=== PATIENT | female | born 2000 ===

== ENCOUNTER 2023-04-25 21:12 | Inpatient (IN) | payer OTHER ==
[~2023-04-25] VITALS: Ht 167.6 cm; Wt 96.2 kg
[2023-04-25 21:17] VITALS: BP_SYST 121
[2023-04-25 21:20] VITALS: BP 110/68; PULSE 76; TEMP 98.4
[2023-04-25] MEDS ORDERED: QUALITY CHOICE1 TA7 PO (21:44)
--- NOTE | 2023-04-25 22:00 | NUR ---
Received report from [facility] nurse Krishna at 2030. Pt arrived on the unit at 2116. Pt is alert and oriented and able to move around independently. Pt has on bracelets, earrings, anklet, and rings on. Pt also has a belt bag, apple watch, and phone in the room. Pt also arrived with clothes and shoes.
[2023-04-25] MEDS ORDERED: LR 1,000 ML IV SCH (22:15)
[2023-04-25] MEDS ORDERED: Morphine 4 MG/ML VIAL IV PRN (22:15)
[2023-04-26] VITALS (17 sets, daily range): BP systolic 101–128; BP diastolic 59–75; PULSE 72–91; TEMP 97.8–98.3
--- NOTE | 2023-04-26 06:21 | NUR ---
Pt had an uneventful night. Pt had no complaints of pain throughout the night. Pt can move independently in the room. Pt's is currently alert and resting in bed with call light within reach. Pt has fluids and ABX running through the IV at this time.
[2023-04-26 06:48] LABS: BASO # 0.1 K/mm3 (0.0-0.2); BASO % 0.6 % (0.0-2.0); EOS # 0.2 K/mm3 (0.0-0.7); EOS % 2.2 % (0.0-4.0); GRAN # 6.7 K/mm3 (1.4-6.5); GRAN % 67.5 % (42.2-75.2); HEMATOCRIT 39.4 % (37.0-47.0); HEMOGLOBIN 12.5 g/dl (12.5-16.0); LYMPH # 2.2 K/mm3 (1.2-3.4); LYMPH % 21.8 % (20.0-51.0); MEAN CELL VOLUME 85 fl (80.0-100.0); MEAN CORPUSCULAR HEMOGLOBIN 27 pg (27-31); MEAN CORPUSCULAR HGB CONC 32 g/dl (33.0-37.0); MEAN PLATELET VOLUME 11.6 fl (7.4-10.4); MONO # 0.8 K/mm3 (0.1-0.6); MONO % 7.5 % (1.7-9.3); PLATELET COUNT 232 K/mm3 (130-400); RED BLOOD COUNT 4.65 M/mm3 (4.10-5.30); REDCELL DISTRIBUTION WIDTH-CV 15.4 % (11.5-14.5)
[2023-04-26 07:05] LABS: ALBUMIN 3.2 gm/dL (3.5-5.0); BILIRUBIN,TOTAL 0.8 mg/dL (0.2-1.2); CALCIUM 8.8 mg/dL (8.4-10.2); CREATININE, serum 0.67 mg/dL (0.57-1.11); POTASSIUM 3.8 mmol/L (3.5-4.5); TOTAL PROTEIN 6.6 gm/dL (6.2-8.1)
[2023-04-26] MEDS ORDERED: Influenza Virus Vaccine, Quad '23-24 (6 MOS+) 0.5 ML SYRINGE IM SCH (09:00)
--- NOTE | 2023-04-26 10:05 | NUR ---
PATIENT ALERT AND ORIENTED X4. VSS. PATIENT HERE FOR GALLSTONES, PANCREATITIS. PATIENT DENIES ANY PAIN THIS MORNING. IV TO LEFT AC WITH LR RUNNING AT 75ML/HOUR. PATIENT TOLERATING CLEAR LIQUIDS. NO FURTHER NEEDS. CALL LIGHT IN REACH.
[2023-04-26] MEDS ORDERED: Acetaminophen 325 MG TAB PO PRN (11:45)
--- NOTE | 2023-04-26 12:21 | NUR ---
table worker met with patient to discuss discharge planning. Patient lives in [place] with her Kushal, Adrianna# [phone]. PCP is [facility], Pharmacy is [facility] or [facility]. No issues affording medications at this time. No DPOA-HC and not interested in completing one at this time. No DME. Patient reports she is independent with ADLS. Patient is able to transport to and from appointments. Patient would like to return home at time of discharge. DIscharge plan: Home
[2023-04-26] MEDS ORDERED: LR 1,000 ML IV SCH (12:45)
[2023-04-26] MEDS ORDERED: dexAMETHasone 10 MG/ML VIAL ONE (13:09)
[2023-04-26] MEDS ORDERED: NS 10 ML IV ONE (13:09)
[2023-04-26] MEDS ORDERED: Rocuronium 50 MG/5 ML Multi-Dose VIAL ONE (13:09)
[2023-04-26] MEDS ORDERED: fentaNYL 50 MCG/ML 2 ML VIAL ONE ×2 (13:09→15:33)
[2023-04-26] MEDS ORDERED: Ondansetron 4 MG/2 ML VIAL ONE (13:09)
--- NOTE | 2023-04-26 13:17 | NUR ---
Initial visit; Patient, her and father and her baby were all present. Operational Test Mechanic commented on her sweet baby and wondered if there was anything she could do for Liat. Patient said she is doing well and ready to go home. She had no spiritual needs at this time.
--- NOTE | 2023-04-26 14:48 | NUR ---
PATIENT OFF OF FLOOR FOR SURGERY
[2023-04-26] MEDS ORDERED: Iohexol 350 - 100 ML VIAL BILE DUCT ONE (16:00)
[2023-04-26] MEDS ORDERED: fentaNYL 50 MCG/ML 2 ML VIAL IV ONE (17:00)
--- NOTE | 2023-04-26 19:48 | NUR ---
report received from deyvi joya. pt resting in bed. post op vital signs continue wnl. call light in reach. all needs met at this time.
--- NOTE | 2023-04-26 22:33 | NUR ---
shift assessment complete, see documentation. pt tolerating pain well. pt reporting 3/10 abd pain but refusing prn medications. post op vitals complete wnl. call light in reach. all needs met at this time.
--- NOTE | 2023-04-26 23:12 | NUR ---
pt reporting nausea. prn zofran administered per orders. call light in reach. all needs met at this time.
[2023-04-27 00:40] VITALS: BP 119/68; PULSE 98; TEMP 98
[2023-04-27 01:06] VITALS: BP_SYST 119
[2023-04-27 05:01] VITALS: BP 117/70; PULSE 79; TEMP 97.9
[2023-04-27 05:11] VITALS: BP_SYST 117
[2023-04-27 07:08] VITALS: BP 112/74; PULSE 70; TEMP 98
--- NOTE | 2023-04-27 10:29 | NUR ---
PATIENT ALERT AND ORIENTED X4. VSS. PATIENT HERE FOR LAP GYPSY. LAPS X3 CDI WITH BANDAIDS. PATIENT REPORTS PAIN 2/10, DENIES NEED FOR PAIN MEDICATION. IV TO LEFT AC INT AND FLUSHES WELL. PATIENT TOLERATING PO. NO FURTHER NEEDS.
--- NOTE | 2023-04-27 11:21 | NUR ---
DISCHARGE INSTRUCTIONS PROVIDED. PATIENT EDUCATION GIVEN. IV DC'D. FOLLOW UP APPOINTMENT DISCUSSED. MEDICATION REVIEWED. PATIENT DENIES ANY QUESTIONS OR CONCERNS. PATIENT ESCORTED OUT VIA WHEELCHAIR.
== END 2023-04-27 10:20 | disposition home or self-care (01) | DRG 419 ==
LOC: SURG 21:12
PROVIDERS: ADMIT Surgery
PROC: 0FT44ZZ Resection of Gallbladder, Percutaneous Endoscopic Approach (ICD-10-PCS; principal; 2023-04-26 15:00)
DX: K85.10 Biliary acute pancreatitis without necrosis or infection (principal)
CPT/HCPCS: J0295; J0690; J1100; J2270; J2405; J2704; J3010; J7120; Q9967